=== PATIENT | female | born 1995 | race Caucasian/White ===

== ENCOUNTER → 2016-09-25 | Outpatient (CLI) | payer OTHER ==
--- NOTE | 2016-09-25 17:02 | Diagnostic Imaging Report ---
EXAMINATION: Transabdominal and transvaginal pelvic ultrasound. INDICATION: Right pelvic fullness. FINDINGS: The uterus is 7.0 x 3.7 x 3.0 cm. The endometrial stripe is 2 mm in thickness. The myometrium is minimally heterogeneous with no discrete mass. Small amount of free fluid is seen in the pelvis. The right ovary is 2.5 x 2.1 x 1.6 cm. Arterial and venous waveforms are demonstrated. The left ovary is 2.6 x 1.8 x 1.2 cm. Arterial and venous waveforms are demonstrated. IMPRESSION: Nonspecific small amount of free fluid in the pelvis. Dictated by: Dictated on workstation # [id number]
== END ==
LOC: RAD 15:43
PROVIDERS: ATTEND Nurse Practitioner
DX: N94.89 Other specified conditions associated with female genital organs and menstrual cycle (principal)
CPT/HCPCS: 76830; 76856

== ENCOUNTER → 2017-07-10 | Outpatient (CLI) | payer OTHER ==
--- NOTE | 2017-07-10 12:20 | Diagnostic Imaging Report ---
PROCEDURE: US Thyroid. TECHNIQUE: Multiple real-time grayscale images were obtained of the thyroid in various projections. INDICATION: Thyroid nodule. FINDINGS: Right lobe of the thyroid measures 4.7 x 1.2 x 1.7 cm. Left lobe measures 5 x 1 x 1.4 cm. There are two tiny nodules on the right measuring 2 and 4 mm. There is a 3 mm nodule on the left. IMPRESSION: Tiny benign-appearing bilateral thyroid nodules, otherwise unremarkable. Dictated on workstation # [id number]
== END ==
LOC: RAD 09:28
PROVIDERS: ATTEND Nurse Practitioner Family
DX: E04.2 Nontoxic multinodular goiter (principal)
CPT/HCPCS: 76536